=== PATIENT | male | born 1945 | race Two or more races ===

== ENCOUNTER 2020-11-10 12:56 | Observation (INO) | payer MEDICARE, OTHER ==
[~2020-11-10] VITALS: Ht 175.3 cm; Wt 72.6 kg
[2020-11-10] MEDS ORDERED: LOSARTAN POTASS25 MG ORAL (12:58)
--- NOTE | 2020-11-10 13:07 | Emergency Room Report ---
History of Present Illness General Chief Complaint: Generalized Weakness Source: Patient (James Teixeira MD) Present Illness HPI Disclaimer: Please note that this report is being documented using [employer] technology. This can lead to erroneous entry secondary to incorrect i nterpretation by the dictating instrument. HPI: 75-year-old male with a history of hypertension presents for evaluation of weakness. He arrives by EMS from [facility]. He was attending service for [facility] and bystander thought he did not look well and called EMS. On arrival EMS found his blood pressure being 95/53. The patient stated he felt well at the time and stated he did not want to come to the hospital. He reports feeling well currently and his vitals were stable en route. He was given 500 cc NS by EMS prior to arrival. He denies chest pain, palpitations, recent weakness, fatigue, abdominal pain, nausea, vomiting, headaches, shortness of breath, cough, URI symptoms. No known exposure to sick contacts or COVID-19. Denies cardiac history. States he took his antihypertensive medications this morning but did not eat breakfast as he was in a [place] to get to [facility] and was not that hungry. Had only a cup of coffee this morning. He did eat dinner last night. Denies alcohol use. No other complaints from patient at this time. PMH: Hypertension PSH: Denied Allergies: Denied Social Hx: Denies drug or alcohol use (James Teixeira MD) Allergies: Coded Allergies: No Known Allergies (Unverified , 11/10/20) COVID-19 Screening Contact w/high risk pt: No Experienced COVID-19 symptoms?: No COVID-19 Testing performed HEALTH UNDERWRITER: No (James Teixeira MD) Nursing Documentation-PMH Hx Hypertension: Yes (James Teixeira MD) Review of Systems All Other Systems: negative except mentioned in HPI (James Teixeira MD) Physical Exam Vital Signs Date Time Temp Pulse Resp B/P (MAP) Pulse Ox O2 Delivery O2 Flow Rate FiO2 11/10/20 12:53 97.9 55 19 103/43 (63) 99 Room Air General: Awake and alert, no acute distress HEENT: NC/AT. EOMI. Cardiovascular: RRR. S1 and S2 normal. No murmur appreciated Resp: Normal work of breathing. No cough, wheezing or crackles appreciated Abdomen: Abdomen is soft, nondistended. Nontender Skin: Intact. No abrasions, laceration or rash over the exposed skin MSK: Normal tone and bulk. Moving all extremities. No obvious deformity. Neuro: Awake and alert. Mentating appropriately. (James Teixeira MD) Procedures Critical Care Time Critical Care Time Time: 30 minutes of bedside evaluation and treatment excludes procedures Procedures: EKG Reason for Critical care: Blood transfusion, anemia, discussion with multiple physicians, transient hypotension Possible Complications: Hypotension, sepsis, metabolic acidosis, prevention of end organ injury Interventions: Blood transfusion, discussion with multiple physicians, repeat evaluations Course: Patient was brought by paramedics. He was hypotensive in the field which resolved with 500 mils of saline. Patient was evaluated by Dr. Teixeira who found the patient to have critical anemia. This necessitated discussing with the patient the risks and benefits of transfusion. In addition the patient was presented to multiple physicians. Consultations: Admitting physician, billing and accounting staff assistant, transfer physician Alternative history: EMS Result: Patient was improved but serious Performed by: Dr. Ansari (Seun Ansari MD) Medical Decision Making Diagnostic Impression: Primary Impression: Anemia Qualified Codes: D64.9 - Anemia, unspecified Additional Impression: MAXIMINO (acute kidney injury) ER Course 75-year-old male brought in for evaluation of weakness. Patient no complaints at this time and on arrival his blood pressures have improved with systolics in the 140s. Received approximately 500 cc NS prior to arrival. His EKG shows borderline right axis but no ischemic changes. There is a slight interventricular conduction delay with a QRS duration of 146 ms. No prior EKG for comparison. He will return critically low at 6.0. The patient states he has not had a problem with anemia in the past and has not needed a transfusion prior. He does consent to a transfusion and admission. Creatinine elevated as well, possible dehydration. Continuing IV fluids and will arrange for transfusion. Chest x-ray shows normal cardiac silhouette the radiologist concern of inflammatory versus infectious process right lower lobe. COVID-19 swab sent. (James Teixeira MD) ER Course Please see above note. Patient was signed out to me. I discussed the need for transfer and his condition with Dr. Hughes. They are looking into whether they have hospital beds available. In addition I was told that the patient did not want to stay in the hospital. I discussed with him the need for transfusion and observation for the renal injury along with monitoring his blood pressure. The patient understands this and agrees to stay. In addition the patient and I discussed risks and benefits of blood transfusion. I have ordered that the patient receive a unit of blood at this time. [id number] Langley who accepts the patient. First unit infusing without difficulty. Patient improved clinically. Patient stable to be transferred to the floor. Laboratory Tests Test 11/10/20 13:08 White Blood Count 11.0 K/UL (4.8-10.8) H Red Blood Count 2.71 M/UL (4.70-6.10) L Hemoglobin 6.0 G/DL (14.2-18.0) *L Hematocrit 19.5 % (42.0-52.0) L Mean Corpuscular Volume 72 FL (80-99) L Mean Corpuscular Hemoglobin 22.1 PG (27.0-31.0) L Mean Corpuscular Hemoglobin Concent 30.7 G/DL (32.0-36.0) L Red Cell Distribution Width 15.0 % (11.6-14.8) H Platelet Count 447 K/UL (150-450) Mean Platelet Volume 5.3 FL (6.5-10.1) L Neutrophils (%) (Auto) % (45.0-75.0) Lymphocytes (%) (Auto) % (20.0-45.0) Monocytes (%) (Auto) % (1.0-10.0) Eosinophils (%) (Auto) % (0.0-3.0) Basophils (%) (Auto) % (0.0-2.0) Differential Total Cells Counted 100 Neutrophils % (Manual) 70 % (45-75) Lymphocytes % (Manual) 26 % (20-45) Monocytes % (Manual) 4 % (1-10) Eosinophils % (Manual) 0 % (0-3) Basophils % (Manual) 0 % (0-2) Band Neutrophils 0 % (0-8) Platelet Estimate Adequate Platelet Morphology Normal Polychromasia 1+ Hypochromasia 2+ Anisocytosis 1+ Microcytosis 1+ Schistocytes Occasional Prothrombin Time 11.4 SEC (9.30-11.50) Prothrombin Time INR 1.0 (0.9-1.1) Activated Partial Thromboplast Time 18 SEC (23-33) L Sodium Level 135 MMOL/L (136-145) L Potassium Level 4.2 MMOL/L (3.5-5.1) Chloride Level 105 MMOL/L (98-107) Carbon Dioxide Level 21 MMOL/L (21-32) Anion Gap 9 mmol/L (5-15) Blood Urea Nitrogen 22 mg/dL (7-18) H Creatinine 1.5 MG/DL (0.55-1.30) H Estimated Glomerular Filtration Rate 45.7 mL/min (>60) Glucose Level 120 MG/DL (74-106) H Calcium Level 7.9 MG/DL (8.5-10.1) L Total Bilirubin 0.3 MG/DL (0.2-1.0) Aspartate Amino Transferase (AST) 14 U/L (15-37) L Alanine Aminotransferase (ALT) 14 U/L (12-78) Alkaline Phosphatase 63 U/L (46-116) Troponin I 0.011 ng/mL (0.000-0.056) Total Protein 6.2 G/DL (6.4-8.2) L Albumin 3.2 G/DL (3.4-5.0) L Globulin 3.0 g/dL Albumin/Globulin Ratio 1.1 (1.0-2.7) Microbiology Date/Time Source Procedure Growth Status 11/10/20 13:50 Nasopharynx SARS-CoV-2 RdRp Gene Assay - Final Complete (Seun Ansari MD) EKG Diagnostic Results Troponin ordered: Yes When was troponin ordered?: Nov 10, 2020 EKG Time: 13:01 Rate: normal Rhythm: NSR ST Segments: no acute changes Other Impression Sinus rhythm, borderline right axis, no ischemic changes. Prolonged QRS duration at 146 ms. (James Teixeira MD) Rhythm Strip Diag. Results Rhythm Strip Time: 13:01 EP Interpretation: yes Rate: 60s Rhythm: NSR, no PVC's, no ectopy (James Teixeira MD) EP Interpretation: yes Rhythm: NSR, no PVC's, no ectopy (Seun Ansari MD) Chest X-Ray Diagnostic Results Chest X-Ray Diagnostic Results : Chest X-Ray Ordered: Yes # of Views/Limited/Complete: 1 View Indication: Other - weakness EP Interpretation: Yes Interpretation: no effusion, no pneumothorax, other - Atelectasis versus infiltrate right lower lobe Impression: Other - Atelectasis versus infiltrate right lower lobe Electronically Signed by: Electronically signed by Dr. James Teixeira MD (James Teixeira MD) Last Vital Signs Date Time Temp Pulse Resp B/P (MAP) Pulse Ox O2 Delivery O2 Flow Rate FiO2 11/10/20 12:53 97.9 55 19 103/43 (63) 99 Room Air (James Teixeira MD) Last Vital Signs Date Time Temp Pulse Resp B/P (MAP) Pulse Ox O2 Delivery O2 Flow Rate FiO2 11/10/20 16:53 98.0 74 19 132/60 100 Room Air Status: improved (Seun Ansari MD) Condition: Serious James Teixeira MD Nov 10, 2020 13:07 Seun Ansari MD Nov 10, 2020 15:06
[2020-11-10 13:20] VITALS: BP 144/59
--- NOTE | 2020-11-10 13:23 | NUR ---
ED Nurse Note: Pt. aaox4. ambulatory. pt. brought in by ra Anthony from [facility]. per pt., his churchmates called 911 becuase he wasn't looking well. Per ems, pt. was 90's systolic on the field but received 500ns en route and pt.'s systolic improved in 140's. pt. stated he took 2 pills of bp meds and denies pain at this time. per pt. he feels fine at this time. no s/s of resp. distress noted. pt. arived with 18gauge on the L-arm inserted by restaurant worker.
[2020-11-10 13:32] LABS: HEMATOCRIT 19.5 % (42.0-52.0); MEAN CORPUSCULAR VOLUME 72 FL (80-99); PLATELET COUNT 447 K/UL (150-450); RED BLOOD COUNT 2.71 M/UL (4.70-6.10)
[2020-11-10 13:36] LABS: CALCIUM 7.9 MG/DL (8.5-10.1); CREATININE 1.5 MG/DL (0.55-1.30); POTASSIUM 4.2 MMOL/L (3.5-5.1)
[2020-11-10 13:41] LABS: BILIRUBIN,TOTAL 0.3 MG/DL (0.2-1.0)
--- NOTE | 2020-11-10 13:45 | Diagnostic Imaging Report ---
EXAM: XR Chest, 1 View CLINICAL HISTORY: WEAK TECHNIQUE: Frontal view of the chest. COMPARISON: None FINDINGS: Hardware: None. Lungs/pleura: Patchy opacities in the mid and lower lungs. No pleural effusion or pneumothorax. Heart/mediastinum: Normal. No cardiomegaly. Soft tissues: Unremarkable. Bones: No acute fracture. Upper abdomen: Normal. IMPRESSION: Patchy opacities in the mid and lower lungs may represent an infectious/inflammatory process.
[2020-11-10 13:53] LABS: ALBUMIN 3.2 G/DL (3.4-5.0); ALBUMIN/GLOBULIN RATIO 1.1 (1.0-2.7)
--- NOTE | 2020-11-10 14:07 | NUR ---
ED Nurse Note: TANYA
--- NOTE | 2020-11-10 15:25 | NUR ---
ED Nurse Note: blood transfusin was started, patient' all VSS at this time
--- NOTE | 2020-11-10 15:30 | NUR ---
ED Nurse Note: PAGED DR. NEIL
[2020-11-10 16:53] VITALS: BP 132/60
--- NOTE | 2020-11-10 17:00 | NUR ---
ED Nurse Note: report given to marta patton
--- NOTE | 2020-11-10 17:20 | NUR ---
ED Nurse Note: patient was admite to MS unit due to anemia, weakness. Patient was transfered to MS unit via gurney with all belongings. Patient AAO x4, VSS at thuis time, skin is warm to touch.
[2020-11-10 17:30] VITALS: BP 135/64
--- NOTE | 2020-11-10 17:30 | NUR ---
NURSE NOTES: Patient arrived on unit via gurney. Assisted to hospital bed without incident. Patient is stable. AOx4, breathing is even and unlabored. Patient given orientation to room, call light, and unit. Patient instructed to use call light for assistance, verbalized understanding. VSS. Patient is running unit of PRBC that was started in ER. No transfusion reaction noted at this time. Patient is in bed in locked and lowest position. All safety measures provided. Patient is in bed in locked and lowest position with call light within reach. Will continue to monitor.
--- NOTE | 2020-11-10 17:50 | NUR ---
NURSE NOTES: Blood transfusion finished. No s/s transfusion reaction at this time. patient is stable.
--- NOTE | 2020-11-10 18:05 | NUR ---
NURSE NOTES: second unit of prbc started. Blood verified by 2 RN, VSS. Patient instructed to inform RN if any transfusion reaction symptoms occur, patient verbalized understanding. Patient is stable.
--- NOTE | 2020-11-10 18:05 | NUR ---
6 Addendum: 11/10/20 at 1829 by MANNIE CARTAGENA RN error
--- NOTE | 2020-11-10 18:20 | NUR ---
NURSE NOTES: RN stayed and assessed patient for any transfusion reactions. Patient is stable. No s/s transfusion reactions noted at this time. VSS, refer to paper chart.
[2020-11-10] MEDS ORDERED: NORVASC5 MG ORAL (18:51)
--- NOTE | 2020-11-10 19:35 | NUR ---
NURSE NOTES: Receive a report from VLADIMIR Quintana.
--- NOTE | 2020-11-10 19:48 | NUR ---
NURSE HAND-OFF: Important Events on Shift: blood transfusion, admission Patient Status: stable Diet: reg Pending Orders: n/a Pending Results/Labs:n/a Pending MD notification:n/a Latest Vital Signs: Temperature 98.0 , Pulse 62 , B/P 135 /64 , Respiratory Rate 18 , O2 SAT 99 , Room Air, O2 Flow Rate . Vital Sign Comment: n/a Latest Pringle Fall Score: 30 Fall Risk: Medium Risk Safety Measures: Call light Within Reach, Bed Alarm , Side Rails Side Rails x2, Bed position . Fall Precautions: Patient Fall Education Report given to Julietho RN.
[2020-11-10 20:00] VITALS: BP 132/60
--- NOTE | 2020-11-10 20:00 | NUR ---
NURSE NOTES: Pt is awake and alert. No acute distress noted. Denies pain/dizziness. On 2nd P-RBC transfusion via left AC. No adverse reactions. Using urinal at bed. Call light within reach. Will continue to monitor.
--- NOTE | 2020-11-10 21:00 | NUR ---
NURSE NOTES: Transfusion finished without adverse reactions. VSS are stable. Will continue to monitor.
--- NOTE | 2020-11-10 22:14 | History and Physical Report ---
"DATE OF ADMISSION: 11/10/2020 HISTORY OF PRESENT ILLNESS: This is a 75-year-old male with a history of hypertension who was sent in for weakness. He arrived via paramedics. Apparently, he had been attending [employer] and was sent in because he looked unwell. The patient states that he was feeling weak. The patient was hypotensive. He was given NS on the way to the emergency room. The patient denies any sore throat, blood loss, hematemesis, melena, or hematochezia. The patient states he did not have breakfast today. He was seen and evaluated in the emergency room. He was found to have a hemoglobin of 6. He was started on transfusion. Creatinine was 1.5. PAST MEDICAL HISTORY: The patient has a past history of hypertension. PAST SURGICAL HISTORY: None. HOME MEDICATIONS: Include amlodipine and losartan. ALLERGIES: None. REVIEW OF SYSTEMS: Denies any headaches, hematemesis, melena, hematochezia, or weight loss. PHYSICAL EXAMINATION: GENERAL: Reveals a 75-year-old male. VITAL SIGNS: Blood pressure 130/60, heart rate 64, respirations on room air. HEENT: Unremarkable. LUNGS: Clear breath sounds bilaterally. ABDOMEN: Soft. NEUROLOGIC: Nonfocal. LABORATORY DATA: Lab testing notable only for hemoglobin of 6, otherwise normal CBC and BMP. Creatinine 1.4. X-ray of the chest is negative except for atelectasis. Per discussion with the ER MD, stool occult blood was negative. EKG shows normal sinus rhythm. IMPRESSION: 1. Anemia. 2. No obvious source of blood loss. 3. Hypertension. DISCUSSION: Admit to the hospital. We will transfuse. We will monitor overnight. Check CBC in the a.m. Discharge planning unless there is any obvious source of blood loss. The patient will need non-emergency evaluation for GI source of blood loss. Theo Langley M.D. DR: KEKE JOB#: [id number] CC:"
[2020-11-11] VITALS: BP 133/69
[2020-11-11 04:00] VITALS: BP 125/59
[2020-11-11 06:32] LABS: BASOPHILS % (AUTO) 0.7 % (0.0-2.0); EOSINOPHILS % (AUTO) 1.8 % (0.0-3.0); HEMATOCRIT 26.1 % (42.0-52.0); HEMOGLOBIN 8.7 G/DL (14.2-18.0); LYMPHOCYTES % (AUTO) 26.8 % (20.0-45.0); MEAN CORPUSCULAR VOLUME 74 FL (80-99); MONOCYTES % (AUTO) 6.4 % (1.0-10.0); NEUTROPHILS % (AUTO) 64.2 % (45.0-75.0); PLATELET COUNT 418 K/UL (150-450); RED BLOOD COUNT 3.53 M/UL (4.70-6.10); RED CELL DISTRIBUTION WIDTH 16.6 % (11.6-14.8); WHITE BLOOD COUNT 9.8 K/UL (4.8-10.8)
--- NOTE | 2020-11-11 07:16 | NUR ---
NURSE HAND-OFF: Important Events on Shift: s/p p-rbc transfusion-no S/E Patient Status: stable Diet: regular Pending Orders: [] Pending Results/Labs:[] Pending MD notification:[] Latest Vital Signs: Temperature 97.9 , Pulse 64 , B/P 125 /59 , Respiratory Rate 18 , O2 SAT 99 , Room Air, O2 Flow Rate . Vital Sign Comment: [] Latest Pringle Fall Score: 30 Fall Risk: Medium Risk Safety Measures: Call light Within Reach, Bed Alarm , Side Rails Side Rails x2, Bed position Low and Locked. Fall Precautions: Door Sign Patient Fall Education
--- NOTE | 2020-11-11 07:30 | NUR ---
HAND-OFF: Report given to VLADIMIR Bejarano. Round is made.
--- NOTE | 2020-11-11 07:35 | NUR ---
NURSE NOTES: Patient lying in bed awake. No complain of pain or distress at this time. IV dressing intact and dry. Bed lowest position and side rails up. Call light within reach. Will continue to monitor.
[2020-11-11 08:00] VITALS: BP 115/51
[2020-11-11] MEDS ORDERED: Losartan 50mg tab ORAL SCH (09:00)
--- NOTE | 2020-11-11 09:01 | NUR ---
NURSE NOTES: Spoke to regarding BP and scheduled BP medication. Per : hold scheduled BP meds. Order noted and carried out.
--- NOTE | 2020-11-11 09:30 | NUR ---
NURSE NOTES: Spoke to regarding patient and ok to discharge patient today. Order noted and carried out.
[2020-11-11 12:00] VITALS: BP 105/56
--- NOTE | 2020-11-11 12:21 | Pulmonology Progress Note ---
Subjective Interval Events: Feeling better Constitutional: Reports: no symptoms HEENT: Repors: no symptoms Respiratory: Reports: no symptoms Cardiovascular: Reports: no symptoms Gastrointestinal/Abdominal: Reports: no symptoms Genitourinary: Reports: no symptoms Allergies: Coded Allergies: No Known Allergies (Unverified , 11/10/20) Objective Last 24 Hour Vital Signs Date Time Temp Pulse Resp B/P (MAP) Pulse Ox O2 Delivery O2 Flow Rate FiO2 11/11/20 09:00 115/51 11/11/20 09:00 68 115/51 11/11/20 09:00 Room Air 11/11/20 08:00 98.0 68 18 115/51 (72) 96 11/11/20 04:00 97.9 64 18 125/59 (81) 99 11/11/20 00:00 98.1 56 18 133/69 (90) 97 11/10/20 21:00 Room Air 11/10/20 20:00 97.7 58 18 132/60 (84) 97 11/10/20 18:10 Room Air 11/10/20 17:30 98.0 62 18 135/64 (87) 99 11/10/20 17:20 97.9 68 18 136/87 99 Room Air 11/10/20 16:53 98.0 74 19 132/60 100 Room Air 11/10/20 15:40 97.5 68 20 11/10/20 15:25 98.0 66 20 11/10/20 13:20 64 17 Room Air 11/10/20 13:20 98.0 64 17 144/59 99 Room Air 11/10/20 12:53 97.9 55 19 103/43 (63) 99 Room Air Intake and Output 11/10/20 11/11/20 19:00 07:00 Intake Total 100 ml Output Total 1100 ml Balance -1000 ml Intake Oral 100 ml Output Urine Total 1100 ml # Voids 1 5 General Appearance: WD/WN HEENT: normocephalic Respiratory: chest wall non-tender Cardiovascular: normal peripheral pulses Abdomen: normal bowel sounds Microbiology Date/Time Source Procedure Growth Status 11/10/20 13:50 Nasopharynx SARS-CoV-2 RdRp Gene Assay - Final Complete Laboratory Tests 11/10/20 13:08: White Blood Count 11.0H, Red Blood Count 2.71L, Hemoglobin 6.0*L, Hematocrit 19.5L, Mean Corpuscular Volume 72L, Mean Corpuscular Hemoglobin 22.1L, Mean Corpuscular Hemoglobin Concent 30.7L, Red Cell Distribution Width 15.0H, Platelet Count 447, Mean Platelet Volume 5.3L, Neutrophils (%) (Auto) , Lympho cytes (%) (Auto) , Monocytes (%) (Auto) , Eosinophils (%) (Auto) , Basophils (%) (Auto) , Differential Total Cells Counted 100, Neutrophils % (Manual) 70, Lymphocytes % (Manual) 26, Monocytes % (Manual) 4, Eosinophils % (Manual) 0, Basophils % (Manual) 0, Band Neutrophils 0, Platelet Estimate Adequate, Platelet Morphology Normal, Polychromasia 1+, Hypochromasia 2+, Anisocytosis 1+, Microcytosis 1+, Schistocytes Occasional, Prothrombin Time 11.4, Prothromb Time International Ratio 1.0, Activated Partial Thromboplast Time 18L, Sodium Level 135L, Potassium Level 4.2, Chloride Level 105, Carbon Dioxide Level 21, Anion Gap 9, Blood Urea Nitrogen 22H, Creatinine 1.5H, Estimat Glomerular Filtration Rate 45.7, Glucose Level 120H, Calcium Level 7.9L, Total Bilirubin 0.3, Aspartate Amino Transf (AST/SGOT) 14L, Alanine Aminotransferase (ALT/SGPT) 14, Alkaline Phosphatase 63, Troponin I 0.011, Total Protein 6.2L, Albumin 3.2L, Globulin 3.0, Albumin/Globulin Ratio 1.1 11/11/20 05:55: White Blood Count 9.8, Red Blood Count 3.53L, Hemoglobin 8.7#L, Hematocrit 26.1#L, Mean Corpuscular Volume 74L, Mean Corpuscular Hemoglobin 24.8L, Mean Corpuscular Hemoglobin Concent 33.5, Red Cell Distribution Width 16.6H, Platelet Count 418, Mean Platelet Volume 5.6L, Neutrophils (%) (Auto) 64.2, Lymphocytes (%) (Auto) 26.8, Monocytes (%) (Auto) 6.4, Eosinophils (%) (Auto) 1.8, Basophils (%) (Auto) 0.7 Current Medications Medications (Trade) Dose Ordered Sig/Samuel Route PRN Reason Start Time Stop Time Status Last Admin Dose Admin Amlodipine Besylate (Norvasc) 5 mg DAILY ORAL 11/11/20 09:00 12/11/20 08:59 Losartan Potassium (Cozaar) 100 mg DAILY ORAL 11/11/20 09:00 12/11/20 08:59 Assessment/Plan Assessment/Plan IMPRESSION: 1. Anemia. 2. No obvious source of blood loss. 3. Hypertension. DISCUSSION: Follow-up hemoglobin is 8.7 Discharge home today. The patient will need non-emergency evaluation for GI source of blood loss He has been advised to follow-up with his primary care physician.. Funmilayo Malhotra Omar Syed MD Nov 11, 2020 12:21
--- NOTE | 2020-11-11 14:00 | NUR ---
NURSE NOTES: Patient discharged with family member in stable condition. Discharge instruction given to patient and verbalized understanding. Belonging given to patient. IV and ID removed. Instructed to follow up with MD and verbalized understanding. Patient ambulated out with all personal belongings with steady gait.
--- NOTE | 2020-11-13 14:16 | NUR ---
insurance CLINICALS FAXED TO [employer] [phone]
== END 2020-11-11 14:00 | disposition home or self-care (01) ==
LOC: EDBD 12:56 → EMR 13:12 → 3E 15:07 → EDBEDREQ 17:11
DX: D64.9 Anemia, unspecified (principal); I10 Essential (primary) hypertension; N17.9 Acute kidney failure, unspecified; J98.11 Atelectasis
CPT/HCPCS: 36415 ×2; 71045; 80053; 84484; 85007; 85025 ×2; 85610; 85730; 86850; 86900; 86901; 86920; 93005; 96360; 99291; P9016; U0002